=== PATIENT | female | born 2000 | race Caucasian/White ===

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

== ENCOUNTER 2022-06-12 21:01 | Emergency (ER) | payer OTHER | END 2022-06-12 22:36 | disposition home or self-care (01) | LOC: ERS 21:01 | DX: Z32.01 Encounter for pregnancy test, result positive (principal) | CPT/HCPCS: 36415; 84702; 99282 ==

== ENCOUNTER 2022-09-02 01:42 | Emergency (ER) | payer OTHER ==
[2022-09-02 02:20] LABS: Bacteria/HPF 4+ HPF (None Seen); Bilirubin Negative (Negative); Blood, Urine Negative (Negative); Clarity Clear (Clear); Glucose, Urine (Dipstick) Normal (Negative); Ketone, Urine Negative (Negative); Leukocyte 250 Leu/uL (Negative); Nitrite Negative (Negative); Pregnancy Test - Urine (BHCG) POSITIVE (Negative); Pregu Control Background? CLEAR/WHITE (CLR/WHITE); Pregu Control Bar Appear? YES (CONTROL BAR); Protein, Urine (Dipstick) Negative (Neg-Trace); RBC/HPF 0-3 HPF (0-3); Specific Gravity 1.011 (1.002-1.036); Specific Gravity, Urine 1.011 (1.002-1.036); Squamous Epithelial 0-3 HPF (0-3); Urobilinogen Normal mg/dL (Less than 2); WBC/HPF 21-50 HPF (0-3); Yeast-Budding 1+ HPF (None Seen)
[2022-09-02 02:23] LABS: #Eosinphils 0.1 thou/uL (0.0-0.7); #Lymphocytes 1.6 thou/uL (1.20-3.40); #Monocytes 0.8 thou/uL (0.11-0.59); #Neutrophils 9.5 thou/uL (1.40-6.50); %Basophils 0.2 % (0.0-1.0); %Eosinophils 0.5 % (0.0-10.0); %Lymphocytes 13.1 % (28.0-48.0); %Monocytes 6.8 % (0.0-4.0); %Neutrophils 79.5 % (31.0-61.0); Hemoglobin 11.5 g/dL (12.0-16.0); Mean Corpuscular HGB CONC 32.5 g/dL (32.0-36.0); Mean Corpuscular Hemoglobin 28.1 pg (25.0-35.0); Mean Corpuscular Volume 86.6 fl (78.0-98.0); Mean Platelet Volume 7.8 fL (7.4-10.4); Platelet Count 258 thou/uL (130-400); RBC Distribution Width 12.2 % (11.5-14.5); Red Blood Cell (RBC) Count 4.08 mill/uL (4.00-5.20); White Blood Cell (WBC) Count 11.9 thou/uL (4.8-10.8)
[2022-09-02 02:26] LABS: BHCG - Serum POSITIVE (NEGATIVE); Pregs Control Background? CLEAR/WHITE (CLR/WHITE); Pregs Control Bar Appear? YES (CONTROL BAR)
[2022-09-02 02:45] LABS: ALT (SGPT) 12 U/L (8-55); AST (SGOT) 10 U/L (5-34); Albumin 3.6 g/dL (3.5-5.0); Alkaline Phosphatase 76 U/L (40-100); Anion Gap 14 mmol/L (10-20); BUN (Urea Nitrogen) 6 mg/dL (7.0-18.7); Bilirubin, Total 0.5 mg/dL (0.2-1.2); Calc. Creatinine Clearance 0 mL/min (70-130); Calcium 9.2 mg/dL (7.8-10.44); Carbon Dioxide 20 mmol/L (22-29); Chloride 104 mmol/L (98-107); Estimated GFR 128; Globulin 3.1 g/dL (2.4-3.5); Glucose 95 mg/dL (70-105); Lipase 18 U/L (8-78); Protein, Total 6.7 g/dL (6.0-8.3); Sodium 134 mmol/L (136-145)
[2022-09-02] MEDS ORDERED: cefTRIAXone\\ROCEPHIN 1 GM VIAL ONE (05:20)
[2022-09-02] MEDS ORDERED: Lidocaine 1% MPF 2 ML VIAL ONE (05:24)
== END 2022-09-02 05:52 | disposition home or self-care (01) ==
LOC: ERS 01:42
DX: O23.02 Infections of kidney in pregnancy, second trimester (principal); Z3A.16 16 weeks gestation of pregnancy
CPT/HCPCS: 36415; 76856; 80053; 81003; 81015; 81025; 83690; 84702; 84703; 85025; 93976; 96372; J0696

== ENCOUNTER 2022-09-26 22:24 | Observation (INO) | payer OTHER ==
[2022-09-26] MEDS ORDERED: Acetaminophen 500 MG TAB ONE (23:11)
[2022-09-26 23:29] LABS: #Eosinphils 0.1 thou/uL (0.0-0.7); #Monocytes 0.4 thou/uL (0.11-0.59); #Neutrophils 6.3 thou/uL (1.40-6.50); %Basophils 0.2 % (0.0-1.0); %Eosinophils 0.6 % (0.0-10.0); %Lymphocytes 22.5 % (28.0-48.0); %Monocytes 4.4 % (0.0-4.0); %Neutrophils 72.3 % (31.0-61.0); Hemoglobin 12.4 g/dL (12.0-16.0); Mean Corpuscular HGB CONC 33.4 g/dL (32.0-36.0); Mean Corpuscular Hemoglobin 28.7 pg (25.0-35.0); Mean Corpuscular Volume 85.9 fl (78.0-98.0); Mean Platelet Volume 7.9 fL (7.4-10.4); Platelet Count 212 10x3/uL (130-400); RBC Distribution Width 13.1 % (11.5-14.5); Red Blood Cell (RBC) Count 4.32 mill/uL (4.00-5.20); White Blood Cell (WBC) Count 8.8 10x3/uL (4.8-10.8)
[2022-09-26 23:50] LABS: ALT (SGPT) 32 U/L (8-55); AST (SGOT) 16 U/L (5-34); Albumin 3.7 g/dL (3.5-5.0); Alkaline Phosphatase 123 U/L (40-100); Anion Gap 13 mmol/L (10-20); BUN (Urea Nitrogen) 10 mg/dL (7.0-18.7); Bilirubin, Total 0.3 mg/dL (0.2-1.2); Calc. Creatinine Clearance 0 mL/min (70-130); Calcium 9.2 mg/dL (7.8-10.44); Carbon Dioxide 23 mmol/L (22-29); Chloride 102 mmol/L (98-107); Estimated GFR 131; Globulin 3.4 g/dL (2.4-3.5); Glucose 89 mg/dL (70-105); Lipase 29 U/L (8-78); Potassium 3.9 mmol/L (3.5-5.1); Protein, Total 7.1 g/dL (6.0-8.3); Sodium 134 mmol/L (136-145)
[2022-09-27] MEDS ORDERED: Piperacillin/Tazobactam 4.5 GM VIAL ONE (02:29)
[2022-09-27 03:09] LABS: SARS-CoV-2 NAA Rapid Test Not Detected (NotDetected)
[2022-09-27 04:26] LABS: Bilirubin Negative (Negative); Blood, Urine Negative (Negative); Clarity Clear (Clear); Glucose, Urine (Dipstick) Normal (Negative); Ketone, Urine 10 mg/dL (Negative); Leukocyte Negative Leu/uL (Negative); Nitrite Negative (Negative); Protein, Urine (Dipstick) Negative (Neg-Trace); Specific Gravity, Urine 1.007 (1.002-1.036); Urobilinogen Normal mg/dL (Less than 2)
[2022-09-27 09:46] VITALS: BP 91/55
[2022-09-27 10:10] LABS: #Eosinphils 0.1 thou/uL (0.0-0.7); #Lymphocytes 1.5 thou/uL (1.20-3.40); #Monocytes 0.3 thou/uL (0.11-0.59); #Neutrophils 4.4 thou/uL (1.40-6.50); %Basophils 0.5 % (0.0-1.0); %Lymphocytes 23.8 % (28.0-48.0); %Monocytes 5.4 % (0.0-4.0); %Neutrophils 69.3 % (31.0-61.0); Hemoglobin 10.9 g/dL (12.0-16.0); Mean Corpuscular HGB CONC 32.9 g/dL (32.0-36.0); Mean Corpuscular Hemoglobin 28.9 pg (25.0-35.0); Mean Corpuscular Volume 87.8 fl (78.0-98.0); Platelet Count 188 10x3/uL (130-400); Red Blood Cell (RBC) Count 3.78 mill/uL (4.00-5.20); White Blood Cell (WBC) Count 6.4 10x3/uL (4.8-10.8)
[2022-09-27 10:30] LABS: ALT (SGPT) 53 U/L (8-55); AST (SGOT) 50 U/L (5-34); Alkaline Phosphatase 111 U/L (40-100); Anion Gap 10 mmol/L (10-20); BUN (Urea Nitrogen) 8 mg/dL (7.0-18.7); Bilirubin, Total 0.2 mg/dL (0.2-1.2); Calc. Creatinine Clearance 0 mL/min (70-130); Calcium 7.9 mg/dL (7.8-10.44); Carbon Dioxide 24 mmol/L (22-29); Chloride 108 mmol/L (98-107); Estimated GFR 132; Globulin 2.5 g/dL (2.4-3.5); Glucose 77 mg/dL (70-105); Potassium 3.7 mmol/L (3.5-5.1); Protein, Total 5.5 g/dL (6.0-8.3); Sodium 138 mmol/L (136-145)
[2022-09-27] MEDS ORDERED: Piperacillin/Tazobactam 3.375 GM in Sodium Chloride 0.9% 100 ML IVPB SCH (16:15)
[2022-09-27] MEDS ORDERED: Acetaminophen 325 MG TAB PO PRN (17:26)
[2022-09-27] MEDS ORDERED: HYDROcodone/Acetaminophen 5/325 mg Tablet PO PRN (17:26)
== END 2022-09-27 15:04 | disposition short-term general hospital (02) ==
LOC: ERS 22:24 → ERHOLD 09-27 03:20
PROVIDERS: ADMIT Surgery; ATTEND Surgery
DX: O99.612 Diseases of the digestive system complicating pregnancy, second trimester (principal); K80.00 Calculus of gallbladder with acute cholecystitis without obstruction; O99.332 Smoking (tobacco) complicating pregnancy, second trimester; F17.290 Nicotine dependence, other tobacco product, uncomplicated; Z3A.20 20 weeks gestation of pregnancy; Z20.822 Contact with and (suspected) exposure to COVID-19
CPT/HCPCS: 36415; 76705; 80053; 81003; 83690; 85025; 85379; 87040; 96374; G0378; J2543; U0002

== ENCOUNTER 2024-12-10 18:49 | Emergency (ER) | payer OTHER ==
[2024-12-10] MEDS ORDERED: Sulfameth/Trimethoprim DS 800-160mg TAB ONE (19:07)
[2024-12-10] MEDS ORDERED: Cephalexin 250 MG CAP ONE ×2 (19:07→19:08)
[2024-12-10] MEDS ORDERED: Ketorolac Tromethamine 30 MG (1 mL) VIAL ONE (19:08)
[2024-12-10 19:28] LABS: #Basophils 0.03 10x3/uL (0.0-0.2); %Basophils 0.3 % (0.0-1.0); %Lymphocytes 17.6 % (21.0-51.0); %Monocytes 5.6 % (0.0-10.0); %Neutrophils 75.3 % (42.0-75.0); Hematocrit 35.9 % (36.0-47.0); Hemoglobin 11.1 g/dL (12.0-16.0); Mean Corpuscular HGB CONC 30.9 g/dL (32.0-36.0); Mean Corpuscular Hemoglobin 23.7 pg (27.0-31.0); Mean Corpuscular Volume 76.7 fL (78.0-98.0); Mean Platelet Volume 9.7 fL (7.4-10.4); Platelet Count 350 10x3/uL (130-400); RBC Distribution Width 15.5 % (11.5-14.5); Red Blood Cell (RBC) Count 4.68 mill/uL (4.20-5.40)
[2024-12-10 19:46] LABS: ALT (SGPT) 25 U/L (Less than 34); AST (SGOT) 30 U/L (11-34); Alkaline Phosphatase 146 U/L (40-110); Anion Gap 15 mmol/L (10-20); BUN (Urea Nitrogen) 13 mg/dL (7.0-18.7); Bilirubin, Total 0.2 mg/dL (0.3-1.2); Calc. Creatinine Clearance 0 mL/min (70-130); Calcium 9.3 mg/dL (7.8-10.44); Carbon Dioxide 22 mmol/L (22-29); Chloride 106 mmol/L (98-107); Estimated GFR 108; Globulin 3.8 g/dL (2.4-3.5); Glucose 112 mg/dL (70-105); Potassium 3.8 mmol/L (3.5-5.1); Protein, Total 7.8 g/dL (6.0-8.3); Sodium 139 mmol/L (136-145)
== END 2024-12-10 20:06 | disposition home or self-care (01) ==
LOC: ERS 18:49
DX: L02.415 Cutaneous abscess of right lower limb (principal); F17.290 Nicotine dependence, other tobacco product, uncomplicated
CPT/HCPCS: 36415; 80053; 83605; 85025; 96372; 99283; J1885